=== PATIENT | female | born 1960 | race Two or more races ===

== ENCOUNTER 2023-12-02 11:27 | Emergency (ER) | payer OTHER, SELFPAY ==
[2023-12-02] MEDS ORDERED: Acetaminophen 500 MG TAB ONE (12:27)
== END 2023-12-02 13:40 | disposition home or self-care (01) ==
LOC: CSHERS 11:27
DX: S42.201A Unspecified fracture of upper end of right humerus, initial encounter for closed fracture (principal); S09.90XA Unspecified injury of head, initial encounter; I10 Essential (primary) hypertension; E11.9 Type 2 diabetes mellitus without complications; W19.XXXA Unspecified fall, initial encounter